=== PATIENT | female | born 1945 | race Caucasian/White ===

== ENCOUNTER → 2017-05-19 | Outpatient (CLI) | payer MEDICARE, OTHER ==
[~2017-05-19] MED LIST: ACET325 PO; Boniva150 MG PO; CALCA500CH PO; ERGO400 PO; Hydrocodone-Ap1 EA23 PO; IBANDRONATE SO150 MG PO; ONDA4ODT; ONDA4ODT MM; PRED20 PO; PROM25 PO
[2017-05-19 16:55] LABS: Alanine Aminotransfer (ALT/SGP 29 U/L (12-78); Albumin, Blood 4.2 g/dL (3.4-5.0); Albumin/Globulin Ratio 1.5 (0.8-1.8); Alk Phos 59 U/L (50-136); Anion Gap 10 mmol/L (6-16); Aspartate Aminotrans (AST/SGOT 23 U/L (12-37); Bilirubin, Total 0.6 mg/dL (0.1-1.0); Blood Urea Nitrogen 21 mg/dL (8-24); Bun/Creatinine Ratio 40.9 (12.0-20.0); CO2, Blood 24 mmol/L (21-32); Calcium, Blood 9.6 mg/dL (8.5-10.1); Chloride, Blood 105 mmol/L (98-108); Creatinine, Blood 0.51 mg/dL (0.40-1.00); Globulin, Blood 2.8 g/dL (2.2-4.0); Glomerular Filtration Rate >60 (60-); Glucose, Blood 93 mg/dL (70-99); Potassium, Blood 4.4 mmol/L (3.5-5.5); Sodium, Blood 139 mmol/L (136-145)
[2017-05-19 16:56] LABS: Lactate Dehydrogenase (Ld),Bld 211 U/L (100-240)
== END ==
LOC: LAB SHORT 10:00
PROVIDERS: Internal Medicine Hematology & Oncology
DX: C85.90 Non-Hodgkin lymphoma, unspecified, unspecified site (principal)
CPT/HCPCS: 80053; 83615

== ENCOUNTER → 2017-10-03 | Outpatient (CLI) | payer MEDICARE, OTHER ==
[2017-10-03 17:36] LABS: Alanine Aminotransfer (ALT/SGP 24 U/L (12-78); Albumin, Blood 4.1 g/dL (3.4-5.0); Albumin/Globulin Ratio 1.7 (0.8-1.8); Alk Phos 44 U/L (50-136); Anion Gap 8 mmol/L (6-16); Aspartate Aminotrans (AST/SGOT 24 U/L (12-37); Bilirubin, Total 0.5 mg/dL (0.1-1.0); Blood Urea Nitrogen 17 mg/dL (8-24); Bun/Creatinine Ratio 23.6 (12.0-20.0); CO2, Blood 28 mmol/L (21-32); Calcium, Blood 9.1 mg/dL (8.5-10.1); Chloride, Blood 109 mmol/L (98-108); Creatinine, Blood 0.72 mg/dL (0.40-1.00); Globulin, Blood 2.4 g/dL (2.2-4.0); Glomerular Filtration Rate >60 (60-); Glucose, Blood 84 mg/dL (70-99); Lactate Dehydrogenase (Ld),Bld 198 U/L (100-240); Potassium, Blood 3.9 mmol/L (3.5-5.5); Sodium, Blood 145 mmol/L (136-145); Total Protein, Blood 6.5 g/dL (6.4-8.2)
== END | disposition home or self-care (01) ==
LOC: LAB 10:36 → LAB SHORT 10:36
PROVIDERS: Internal Medicine Hematology & Oncology
DX: C85.90 Non-Hodgkin lymphoma, unspecified, unspecified site (principal)
CPT/HCPCS: 80053; 83615

== ENCOUNTER → 2018-05-18 | Outpatient (CLI) | payer MEDICARE, OTHER ==
[2018-05-18 10:57] LABS: BASOPHILS ABSOLUTE AUTO 0.05 K/mm3 (0.00-0.23); BASOPHILS PERCENT AUTO 1 % (0-2); EOSINOPHILS ABSOLUTE AUTO 0.24 K/mm3 (0.00-0.68); EOSINOPHILS PERCENT AUTO 5 % (0-6); Hematocrit 38.9 % (33.0-51.0); Hemoglobin 13.1 g/dL (11.5-16.0); IMMATURE GRAN ABSOLUTE AUTO 0.01 K/mm3 (0.00-0.10); IMMATURE GRAN PERCENT AUTO 0 % (0-1); LYMPHOCYTES ABSOLUTE AUTO 1.28 K/mm3 (0.84-5.20); LYMPHOCYTES PERCENT AUTO 27 % (21-46); MONOCYTES ABSOLUTE AUTO 0.49 K/mm3 (0.16-1.47); MONOCYTES PERCENT AUTO 10 % (4-13); Mean Corpuscular HGB 30.8 pg (26.0-34.0); Mean Corpuscular HGB Conc 33.7 g/dL (31.5-36.5); Mean Corpuscular Volume 91 fL (80-100); Mean Platelet Volume 10.8 fL (9.1-12.4); NEUTROPHILS ABSOLUTE AUTO 2.64 K/mm3 (1.96-9.15); NEUTROPHILS PERCENT AUTO 56 % (41-73); Platelet Count 225 K/mm3 (150-400); RDW Coefficient Variation 12.5 % (11.7-14.2); RDW Standard Deviation 41.7 fL (35.1-46.3); Red Blood Cell Count 4.26 M/mm3 (3.80-5.20); White Blood Cell Count 4.71 K/mm3 (4.00-11.30)
== END | disposition home or self-care (01) ==
LOC: LAB 10:37 → LAB SHORT 10:37
PROVIDERS: Internal Medicine Hematology & Oncology
DX: C85.90 Non-Hodgkin lymphoma, unspecified, unspecified site (principal); D50.9 Iron deficiency anemia, unspecified
CPT/HCPCS: 85025

== ENCOUNTER 2019-12-15 12:06 | Day surgery (SDC) | payer MEDICARE, OTHER ==
[~2019-12-15] VITALS: Ht 157.5 cm; Wt 42.2 kg
[2019-12-15] MEDS ORDERED: CALCIUM 600 +1 EA11 (12:29)
[2019-12-15] MEDS ORDERED: PROLIA60 MG/1 ML SQ (12:29)
== END 2019-12-15 14:05 | disposition home or self-care (01) ==
LOC: ORSCSDS 12:06
PROVIDERS: Anesthesiology
PROC: 3E0R33Z Introduction of Anti-inflammatory into Spinal Canal, Percutaneous Approach (ICD-10-PCS; principal; 2019-12-15 13:30)
DX: M50.122 Cervical disc disorder at C5-C6 level with radiculopathy (principal); E78.00 Pure hypercholesterolemia, unspecified
CPT/HCPCS: J1040; J2250; J3010; J7030

== ENCOUNTER 2021-05-23 08:43 | Day surgery (SDC) | payer MEDICARE, OTHER ==
[~2021-05-23] VITALS: Ht 157.5 cm; Wt 45.3 kg
[~2021-05-23 08:43] MED LIST changes: +CALCIUM 600 +1 EA11; +PROLIA60 MG/1 ML SQ
== END 2021-05-23 11:01 | disposition home or self-care (01) ==
LOC: ORSCSDS 08:43
PROVIDERS: Internal Medicine Gastroenterology
PROC: 0DBK8ZX Excision of Ascending Colon, Via Natural or Artificial Opening Endoscopic, Diagnostic (ICD-10-PCS; principal; 2021-05-23 10:00)
PROC: 0DBL8ZX Excision of Transverse Colon, Via Natural or Artificial Opening Endoscopic, Diagnostic (ICD-10-PCS; principal; 2021-05-23 10:00)
DX: Z12.11 Encounter for screening for malignant neoplasm of colon (principal); Z86.010 Personal history of colon polyps; D12.2 Benign neoplasm of ascending colon; D12.3 Benign neoplasm of transverse colon; K57.30 Diverticulosis of large intestine without perforation or abscess without bleeding; Z79.899 Other long term (current) drug therapy
CPT/HCPCS: 88305; J2704; J7120

== ENCOUNTER 2024-01-25 08:22 | Emergency (ER) | payer MEDICARE, OTHER ==
[~2024-01-25] VITALS: Ht 154.9 cm; Wt 47.6 kg
[2024-01-25 08:36] VITALS: BP 150/88
[2024-01-25] MEDS ORDERED: Ketorolac Tromethamine 15mg Vial IV ONE (09:30)
[2024-01-25 09:38] LABS: BASOPHILS ABSOLUTE AUTO 0.05 K/mm3 (0.00-0.23); BASOPHILS PERCENT AUTO 1 % (0-2); EOSINOPHILS ABSOLUTE AUTO 0.21 K/mm3 (0.00-0.68); EOSINOPHILS PERCENT AUTO 3 % (0-6); Hematocrit 42.7 % (33.0-51.0); Hemoglobin 15.1 g/dL (11.5-16.0); IMMATURE GRAN ABSOLUTE AUTO 0.01 K/mm3 (0.00-0.10); IMMATURE GRAN PERCENT AUTO 0 % (0-1); LYMPHOCYTES ABSOLUTE AUTO 2.07 K/mm3 (0.84-5.20); LYMPHOCYTES PERCENT AUTO 33 % (21-46); MONOCYTES ABSOLUTE AUTO 0.42 K/mm3 (0.16-1.47); MONOCYTES PERCENT AUTO 7 % (4-13); Mean Corpuscular HGB 30.2 pg (26.0-34.0); Mean Corpuscular HGB Conc 35.4 g/dL (31.5-36.5); Mean Corpuscular Volume 85 fL (80-100); Mean Platelet Volume 10.5 fL (9.1-12.4); NEUTROPHILS ABSOLUTE AUTO 3.53 K/mm3 (1.96-9.15); NEUTROPHILS PERCENT AUTO 56 % (41-73); Platelet Count 284 K/mm3 (150-400); RDW Coefficient Variation 13.2 % (11.7-14.2); RDW Standard Deviation 41.2 fL (35.1-46.3); White Blood Cell Count 6.29 K/mm3 (4.00-11.30)
[2024-01-25 09:50] LABS: Albumin, Blood 4.1 g/dL (3.4-5.0); Albumin/Globulin Ratio 1.2 (0.8-1.8); Bun/Creatinine Ratio 18.2 (12.0-20.0); Creatinine, Blood 0.61 mg/dL (0.40-1.00); Globulin, Blood 3.3 g/dL (2.2-4.0); Potassium, Blood 3.6 mmol/L (3.5-5.5); Total Protein, Blood 7.4 g/dL (6.4-8.2)
[2024-01-25 09:58] LABS: Source, Urine Clean Catch
[2024-01-25 10:08] LABS: Bilirubin, Urine Neg (Neg); Blood, Urine 2+ (Neg); Glucose Qualitative, Urine Neg (Neg); Ketones, Urine 2+ (Neg); Leukocyte Esterase, Urine Neg (Neg); Nitrite, Urine Neg (Neg); Protein, Urine Neg (Neg); Urobilinogen, Urine NORM (Normal)
[2024-01-25 10:29] LABS: Appearance, Urine Clear (Clear); Color, Urine Pale Yellow (P-Yellow)
[2024-01-25 10:34] LABS: White Blood Cells, Urine 0-2 /hpf (0-5)
[2024-01-25 10:35] LABS: Bacteria Rare /hpf; Hyaline Casts 0-2 /lpf (0-2); Mucus Light (0-Heavy); Squamous Epithelial Cells Not Seen /hpf (Few)
== END 2024-01-25 11:48 | disposition home or self-care (01) ==
LOC: ER 08:22
PROVIDERS: Student in an Organized Health Care Education/Training Program
DX: G57.21 Lesion of femoral nerve, right lower limb (principal); Z88.0 Allergy status to penicillin
CPT/HCPCS: 74177; 80053; 81001; 85025; 96374-59; 99284-25; J1885; Q9967

== ENCOUNTER 2024-01-30 09:48 | Emergency (ER) | payer MEDICARE, OTHER ==
[~2024-01-30] VITALS: Ht 154.9 cm; Wt 47.6 kg
[2024-01-30 11:10] LABS: Source, Urine Clean Catch
[2024-01-30 11:12] LABS: Appearance, Urine Clear (Clear); Bilirubin, Urine Neg (Neg); Blood, Urine 4+ (Neg); Color, Urine Yellow (P-Yellow); Glucose Qualitative, Urine Neg (Neg); Ketones, Urine 2+ (Neg); Leukocyte Esterase, Urine Neg (Neg); Nitrite, Urine Neg (Neg); Protein, Urine 1+ (Neg); Urobilinogen, Urine NORM (Normal)
[2024-01-30 11:12] LABS: BASOPHILS ABSOLUTE AUTO 0.06 K/mm3 (0.00-0.23); BASOPHILS PERCENT AUTO 1 % (0-2); EOSINOPHILS ABSOLUTE AUTO 0.18 K/mm3 (0.00-0.68); EOSINOPHILS PERCENT AUTO 3 % (0-6); Hematocrit 41.3 % (33.0-51.0); Hemoglobin 14.7 g/dL (11.5-16.0); IMMATURE GRAN ABSOLUTE AUTO 0.02 K/mm3 (0.00-0.10); IMMATURE GRAN PERCENT AUTO 0 % (0-1); LYMPHOCYTES ABSOLUTE AUTO 2.19 K/mm3 (0.84-5.20); LYMPHOCYTES PERCENT AUTO 32 % (21-46); MONOCYTES ABSOLUTE AUTO 0.55 K/mm3 (0.16-1.47); MONOCYTES PERCENT AUTO 8 % (4-13); Mean Corpuscular HGB 30.9 pg (26.0-34.0); Mean Corpuscular HGB Conc 35.6 g/dL (31.5-36.5); Mean Corpuscular Volume 87 fL (80-100); Mean Platelet Volume 10.7 fL (9.1-12.4); NEUTROPHILS ABSOLUTE AUTO 3.78 K/mm3 (1.96-9.15); NEUTROPHILS PERCENT AUTO 56 % (41-73); Platelet Count 238 K/mm3 (150-400); RDW Coefficient Variation 13.2 % (11.7-14.2); RDW Standard Deviation 41.3 fL (35.1-46.3); Red Blood Cell Count 4.76 M/mm3 (3.80-5.20); White Blood Cell Count 6.78 K/mm3 (4.00-11.30)
[2024-01-30 11:25] LABS: Albumin, Blood 4.1 g/dL (3.4-5.0); Albumin/Globulin Ratio 1.3 (0.8-1.8); Bilirubin, Total 0.8 mg/dL (0.1-1.0); Bun/Creatinine Ratio 19.5 (12.0-20.0); Calcium, Blood 9.4 mg/dL (8.5-10.1); Creatinine, Blood 0.57 mg/dL (0.40-1.00); Globulin, Blood 3.1 g/dL (2.2-4.0); Potassium, Blood 3.7 mmol/L (3.5-5.5); Total Protein, Blood 7.2 g/dL (6.4-8.2)
[2024-01-30 11:46] LABS: Bacteria Rare /hpf; Squamous Epithelial Cells Rare /hpf (Few); White Blood Cells, Urine 0-2 /hpf (0-5)
[2024-01-30 14:22] VITALS: BP 147/82
== END 2024-01-30 14:40 | disposition home or self-care (01) ==
LOC: ER 09:48
PROVIDERS: Physician Assistant
DX: K52.9 Noninfective gastroenteritis and colitis, unspecified (principal); Z88.0 Allergy status to penicillin
CPT/HCPCS: 74177; 80053; 81001; 85025; 99284-25; Q9967

== ENCOUNTER 2024-06-01 13:58 | Day surgery (SDC) | payer MEDICARE, OTHER ==
[~2024-06-01] VITALS: Ht 154.9 cm; Wt 46.3 kg
[~2024-06-01 13:58] MED LIST changes: +Atropine Sulfate 0.1 MG/ML 10ML SYR ONE; +Glycopyrrolate 0.2 MG/ML 1MLVIAL ONE; +Lactated Ringer's 1,000 ML IV ONE; +Lidocaine 2% 5 ML SDV ONE; +Lidocaine HCl/Pf 1% 5 ML VIAL ONE; +Ondansetron HCl 2 MG / ML 2ML Vial ONE; +ePHEDrine Sulfate 50 MG/ML 1ML Injection ONE; +propofoL 50 ML IV ONE
[2024-06-01] MEDS ORDERED: Lactated Ringer's 1,000 ML IV ONE (15:22)
[2024-06-01 17:10] VITALS: BP 126/84
== END 2024-06-01 17:11 | disposition home or self-care (01) ==
LOC: ORSCSDS 13:58
PROVIDERS: Surgery
PROC: 0DBK8ZX Excision of Ascending Colon, Via Natural or Artificial Opening Endoscopic, Diagnostic (ICD-10-PCS; principal; 2024-06-01 15:30)
DX: R10.31 Right lower quadrant pain (principal); K59.00 Constipation, unspecified; Z86.0100 Personal history of colon polyps, unspecified; D12.2 Benign neoplasm of ascending colon; E78.5 Hyperlipidemia, unspecified; Z87.898 Personal history of other specified conditions
CPT/HCPCS: J0461; J2003; J2405; J2704; J7120

== ENCOUNTER 2024-08-11 12:50 | Day surgery (SDC) | payer MEDICARE, OTHER ==
[~2024-08-11] VITALS: Ht 157.5 cm; Wt 46.9 kg
[~2024-08-11 12:50] MED LIST changes: -Atropine Sulfate 0.1 MG/ML 10ML SYR ONE; +Balanced Salt Epinephrine Irrigation Solution 500 mL IR SCH; +Diazepam 2 MG Tab PO PRN; -Glycopyrrolate 0.2 MG/ML 1MLVIAL ONE; -Lactated Ringer's 1,000 ML IV ONE; -Lidocaine 2% 5 ML SDV ONE; -Lidocaine HCl/Pf 1% 5 ML VIAL ONE; +Lidocaine HCl/Pf 1% 5 ML VIAL XX SCH; +Moxifloxacin HCL 0.5 MG/0.1 ML 0.4MLSYR RIGHTEYE SCH; +Ondansetron 4 MG SoluTab MM PRN; -Ondansetron HCl 2 MG / ML 2ML Vial ONE; +PHENYLEPHRINE\\TROPICAMIDE\\TETRACAINE OPHTHALMIC DILATING SOLN RIGHTEYE PRN; +Povidone-Iodine 450 DROP/30 ML Solution ONE; +Povidone-Iodine 450 DROP/30 ML Solution RIGHTEYE SCH; +Tetracaine HCl/Pf 0.5% Opth Soln 4 ml ONE; +diazePAM 5 MG,diazePAM 2 MG PO SCH; -ePHEDrine Sulfate 50 MG/ML 1ML Injection ONE; -propofoL 50 ML IV ONE
[2024-08-11] MEDS ORDERED: Diazepam 2 MG Tab ONE (12:51)
[2024-08-11] MEDS ORDERED: Diazepam 5 MG Tab ONE (12:52)
--- NOTE | 2024-08-11 13:42 | NUR ---
08/11/24 1342 Marni Rodriguez PT REPORTS ANXIETY LEVEL AT 2/10 PRIOR TO ADMINISTRATION OF VALIUM 7MG PO AT 1322. SPO2 AND HR MONITORING IN PLACE. CALL LIGHT IN PT'S HAND. TETRACAINE IN AT 1324. PLEDGETT IN AT 1325.
[2024-08-11] MEDS ORDERED: Tetracaine HCl 0.5% Opth Soln 15 ml RIGHTEYE ONE (14:02)
--- NOTE | 2024-08-11 14:04 | NUR ---
08/11/24 1404 Dieter Cao N 1404 141/71 20 61 100 10 L BLOW BY 02
[2024-08-11 14:27] VITALS: BP 129/76
== END 2024-08-11 14:27 | disposition home or self-care (01) ==
LOC: ORSCSDS 12:50
PROVIDERS: Student in an Organized Health Care Education/Training Program
PROC: 08RJ3JZ Replacement of Right Lens with Synthetic Substitute, Percutaneous Approach (ICD-10-PCS; principal; 2024-08-11 14:30)
DX: H25.813 Combined forms of age-related cataract, bilateral (principal); E78.5 Hyperlipidemia, unspecified
CPT/HCPCS: A9270; V2632

== ENCOUNTER 2024-08-17 12:31 | Day surgery (SDC) | payer MEDICARE, OTHER ==
[~2024-08-17] VITALS: Ht 157.5 cm; Wt 46.6 kg
[~2024-08-17 12:31] MED LIST changes: +Diazepam 5 MG Tab PO PRN; +Diazepam 5 MG Tab PO SCH; +Moxifloxacin HCL 0.5 MG/0.1 ML 0.4MLSYR LEFTEYE SCH; -Moxifloxacin HCL 0.5 MG/0.1 ML 0.4MLSYR RIGHTEYE SCH; +PHENYLEPHRINE\\TROPICAMIDE\\TETRACAINE OPHTHALMIC DILATING SOLN LEFTEYE PRN; -PHENYLEPHRINE\\TROPICAMIDE\\TETRACAINE OPHTHALMIC DILATING SOLN RIGHTEYE PRN; +Povidone-Iodine 450 DROP/30 ML Solution LEFTEYE SCH; -Povidone-Iodine 450 DROP/30 ML Solution RIGHTEYE SCH
[2024-08-17] MEDS ORDERED: Diazepam 2 MG Tab ONE (12:42)
[2024-08-17] MEDS ORDERED: Diazepam 5 MG Tab ONE (12:43)
--- NOTE | 2024-08-17 12:59 | NUR ---
08/17/24 1259 Sola Lopez PT ANXITEY LEVEL 1-05/31. PT IS IN BED WITH CALL LIGHT, PULSE OX MONITORING IN PLACE.
--- NOTE | 2024-08-17 13:30 | NUR ---
08/17/24 1330 Valery Stallings 1322 BP 131/73, HR 56, 02 AT 99% BLOW BY, 16 RESP
[2024-08-17 13:38] VITALS: BP 129/69
--- NOTE | 2024-08-17 13:52 | NUR ---
08/17/24 0486 Karissa Costa CALLED AND UPDATED HIM ON ESTIMATED DISCHARGE TIME. INSTRUCTED HIM TO PULL CAR TO PATIENT SKIN TANNER AREA
== END 2024-08-17 13:52 | disposition home or self-care (01) ==
LOC: ORSCSDS 12:31
PROVIDERS: Student in an Organized Health Care Education/Training Program
PROC: 08RK3JZ Replacement of Left Lens with Synthetic Substitute, Percutaneous Approach (ICD-10-PCS; principal; 2024-08-17 14:00)
DX: H25.812 Combined forms of age-related cataract, left eye (principal); Z96.1 Presence of intraocular lens; M81.0 Age-related osteoporosis without current pathological fracture; E78.5 Hyperlipidemia, unspecified
CPT/HCPCS: A9270; V2632

== ENCOUNTER 2025-04-03 09:59 | Inpatient (IN) | payer MEDICARE, OTHER ==
[~2025-04-03] VITALS: Ht 165.1 cm; Wt 59.0 kg
[~2025-04-03 09:59] MED LIST changes: -Balanced Salt Epinephrine Irrigation Solution 500 mL IR SCH; -Diazepam 2 MG Tab PO PRN; -Diazepam 5 MG Tab PO PRN; -Diazepam 5 MG Tab PO SCH; -Lidocaine HCl/Pf 1% 5 ML VIAL XX SCH; -Moxifloxacin HCL 0.5 MG/0.1 ML 0.4MLSYR LEFTEYE SCH; -Ondansetron 4 MG SoluTab MM PRN; -PHENYLEPHRINE\\TROPICAMIDE\\TETRACAINE OPHTHALMIC DILATING SOLN LEFTEYE PRN; -Povidone-Iodine 450 DROP/30 ML Solution LEFTEYE SCH; -Povidone-Iodine 450 DROP/30 ML Solution ONE; -Tetracaine HCl/Pf 0.5% Opth Soln 4 ml ONE; -diazePAM 5 MG,diazePAM 2 MG PO SCH
[2025-04-03 11:19] LABS: BASOPHILS ABSOLUTE AUTO 0.06 K/mm3 (0.00-0.23); BASOPHILS PERCENT AUTO 0 % (0-2); EOSINOPHILS ABSOLUTE AUTO 0.04 K/mm3 (0.00-0.68); EOSINOPHILS PERCENT AUTO 0 % (0-6); Hematocrit 36.4 % (33.0-51.0); Hemoglobin 12.7 g/dL (11.5-16.0); IMMATURE GRAN ABSOLUTE AUTO 0.10 K/mm3 (0.00-0.10); IMMATURE GRAN PERCENT AUTO 1 % (0-1); LYMPHOCYTES ABSOLUTE AUTO 0.98 K/mm3 (0.84-5.20); LYMPHOCYTES PERCENT AUTO 6 % (21-46); MONOCYTES ABSOLUTE AUTO 0.94 K/mm3 (0.16-1.47); MONOCYTES PERCENT AUTO 6 % (4-13); Mean Corpuscular HGB Conc 34.9 g/dL (31.5-36.5); Mean Corpuscular Volume 89 fL (80-100); NEUTROPHILS ABSOLUTE AUTO 14.12 K/mm3 (1.96-9.15); NEUTROPHILS PERCENT AUTO 87 % (41-73); NRBC ABSOLUTE 0.00 K/mm3 (0.00-0.02); NRBC Auto 0.0 /100 WBC (0.0-0.2); Platelet Count 190 K/mm3 (150-400); RDW Coefficient Variation 13.3 % (11.7-14.2); RDW Standard Deviation 43.9 fL (35.1-46.3)
[2025-04-03 11:30] LABS: Alanine Aminotransfer (ALT/SGP 18.0 U/L (12-78); Albumin, Blood 3.5 g/dL (3.4-5.0); Albumin/Globulin Ratio 1.2 (0.8-1.8); Anion Gap 9.0 mmol/L (3-11); Aspartate Aminotrans (AST/SGOT 26.0 U/L (12-37); Bilirubin, Total 0.5 mg/dL (0.1-1.0); Blood Urea Nitrogen 12.0 mg/dL (8-24); CO2, Blood 24.0 mmol/L (21-32); Calcium, Blood 8.4 mg/dL (8.5-10.1); Chloride, Blood 106.0 mmol/L (98-108); Creatinine, Blood 0.56 mg/dL (0.40-1.00); Globulin, Blood 3.0 g/dL (2.2-4.0); Glucose, Blood 148.0 mg/dL (70-99); Potassium, Blood 3.4 mmol/L (3.5-5.5); Sodium, Blood 136.0 mmol/L (136-145); Total Protein, Blood 6.5 g/dL (6.4-8.2)
[2025-04-03] MEDS ORDERED: Magnesium Hydroxide Conc 10 ML UDC PO PRN (11:50)
[2025-04-03] MEDS ORDERED: FLU VACC TS2025(65UP)/MF59C/PF 45 MCG/0.5 ML SYRINGE IM SCH (12:00)
[2025-04-03] MEDS ORDERED: Ondansetron HCl 2 MG / ML 2ML Vial IV ONE (12:15)
[2025-04-03 13:24] VITALS: BP 159/85
[2025-04-03] MEDS ORDERED: Ondansetron HCl 2 MG / ML 2ML Vial IV PRN (13:30)
[2025-04-03] MEDS ORDERED: Labetalol HCL 5 MG/ML 4ML Injection (Single Dose) IV PRN (13:45)
[2025-04-03] MEDS ORDERED: HYDROmorphone HCl/Pf 1MG SYR IV PRN (15:50)
[2025-04-03] MEDS ORDERED: Metoclopramide HCl 5MG / ML 2ML Vial IV PRN (15:50)
--- NOTE | 2025-04-03 16:31 | NUR ---
PT A/OX4. RIGHT SIDE DEFICITS WERE NOTED ON ASSESSMENT. RIGHT FACIAL DROOP, RIGHT SIDE NECK TILT, AND RIGHT SIDE ARM DROOP. PT DID HAVE 2 EPISODES OF EMESIS. TX PER EMAR. SOME NAUSEA STILL PRESENT PER PT. PT HAS BEEN BEDREST SINCE ADMISSION DUE TO DIZZINESS AND RIGHT SIDE WEAKNESS. MRI IS ORDERED. COVID TEST SENT TO LAB. PT IS CURRENTLY RESTING IN BED, CHEST RISE AND FALL IS SYMMETRICAL. NO ACUTE NEEDS AT THIS TIME.
[2025-04-03 18:23] LABS: Influenza A, PCR NEGATIVE (NEGATIVE); Influenza B, PCR NEGATIVE (NEGATIVE); Resp Syncytial Virus, PCR NEGATIVE (NEGATIVE); SARS-Cov-2 (COVID-19) PCR, MMC NEGATIVE (NEGATIVE)
[2025-04-03 20:42] VITALS: BP 118/70
[2025-04-04] VITALS (7 sets, daily range): BP systolic 121–138; BP diastolic 68–82
[2025-04-04 05:54] LABS: BASOPHILS ABSOLUTE AUTO 0.02 K/mm3 (0.00-0.23); BASOPHILS PERCENT AUTO 0 % (0-2); EOSINOPHILS ABSOLUTE AUTO 0.03 K/mm3 (0.00-0.68); EOSINOPHILS PERCENT AUTO 0 % (0-6); Hematocrit 37.0 % (33.0-51.0); Hemoglobin 13.1 g/dL (11.5-16.0); IMMATURE GRAN ABSOLUTE AUTO 0.03 K/mm3 (0.00-0.10); IMMATURE GRAN PERCENT AUTO 0 % (0-1); LYMPHOCYTES ABSOLUTE AUTO 1.69 K/mm3 (0.84-5.20); LYMPHOCYTES PERCENT AUTO 16 % (21-46); MONOCYTES ABSOLUTE AUTO 1.13 K/mm3 (0.16-1.47); MONOCYTES PERCENT AUTO 10 % (4-13); Mean Corpuscular HGB Conc 35.4 g/dL (31.5-36.5); Mean Corpuscular Volume 88 fL (80-100); NEUTROPHILS ABSOLUTE AUTO 7.92 K/mm3 (1.96-9.15); NEUTROPHILS PERCENT AUTO 73 % (41-73); NRBC ABSOLUTE 0.00 K/mm3 (0.00-0.02); NRBC Auto 0.0 /100 WBC (0.0-0.2); Platelet Count 216 K/mm3 (150-400); RDW Coefficient Variation 13.5 % (11.7-14.2); RDW Standard Deviation 43.3 fL (35.1-46.3)
[2025-04-04 06:13] LABS: Anion Gap 10.0 mmol/L (3-11); Blood Urea Nitrogen 12.0 mg/dL (8-24); CO2, Blood 27.0 mmol/L (21-32); Calcium, Blood 8.7 mg/dL (8.5-10.1); Chloride, Blood 104.0 mmol/L (98-108); Creatinine, Blood 0.71 mg/dL (0.40-1.00); Glucose, Blood 101.0 mg/dL (70-99); Potassium, Blood 3.7 mmol/L (3.5-5.5); Sodium, Blood 137.0 mmol/L (136-145)
--- NOTE | 2025-04-04 06:44 | NUR ---
SHIFT SUMMARY PT C/O DIZZINESS WITH ANY MOVEMENT THROUGHOUT THE NIGHT. MEDICATED FOR NAUSEA X2 PER EMAR. NO EMESIS THIS SHIFT. PT ABLE TO TAKE A COUPLE OF SIPS OF WATER, A COUPLE OF BITES OF CRACKER, AND TYLENOL FOR HEADACHE. SLEPT WITH HOB ELEVATED FOR COMFORT. SLEPT INTERMITTENTLY DURING THE NIGHT. MRI PLANNED FOR THIS AM.
[2025-04-04] MEDS ORDERED: Enoxaparin 40 MG/0.4 ML SYR SC SCH (09:00)
--- NOTE | 2025-04-04 17:05 | NUR ---
SHIFT SUMMARY PATIENT IS A&OX4, SHE IS ON ROOM AIR AND HAS TELEMETRY RUNNING SINUS RHYTHM FOR THIS DAY. RIGHT SIDED WEAKNESS REPORTED BY BREASTER HAS NOT BEEN OBSERVED BY THIS RN. PATIENT DOES REMAIN WEAK BUT CAN STAND [place] [facility] [place] AND DID HAVE A LARGE FORMED BM TODAY. SHE IS STILL COMPLAINING OF NAUSEA AND DIZZINESS WITH MOVEMENT, BUT HAS REPEATEDLY DECLINED NAUSEA MEDICATION. SHE HAS NOT EATEN MUCH TODAY, SHE IS ENCOURAGED TO EAT AND EDUCATED ABOUT THE IMPORTANCE OF EATING TO HEALING. PATIENT HAS BEEN PLEASANT AND COOPERATIVE WITH CARE. SHE USES HER CALL LIGHT APPROPRIATELY. SHE IS CURRENTLY IN THE RECLINER, RESTING. WHEELS LOCKED ON CHAIR, CALL LIGHT IN REACH.
[2025-04-05 03:44] VITALS: BP 125/73
--- NOTE | 2025-04-05 04:02 | NUR ---
END OF SHIFT SUMMARY: AxOX4. DNR. ADMITTED FOR STROKE WHICH MRI CONFIRMED. PATIENT STATED SHE PREVIOUSLY HAD N&V WITH MOVING ALONG WITH LEFT SIDED WEAKNESS AND FACIAL DROOP. PATIENT STATES HAS IMPROVED SINCE ADMIT. NO N&V REPORTED THIS SHIFT. PATIENT IS ON TELE- NSR @ 75 BPM. PATIENT IS ABLE TO MAKE NEEDS KNOWN. PATIENT CAN STAND AND PIVOT WITH 1 ASSIST TO BEDSIDE COMMODE. PATIENT TAKES MEDS WHOLE WITH FLUIDS. BED IN LOWEST POSITION. CALL LIGHT WITHIN REACH AND PATIENT HAS BEEN EDUCATED ON HOW TO USE. WILL REPORT TO ONCOMING NURSE.
[2025-04-05 07:20] VITALS: BP 117/76
[2025-04-05 11:12] VITALS: BP 118/79
[2025-04-05 16:00] VITALS: BP 115/83
--- NOTE | 2025-04-05 16:00 | NUR ---
PT A/OX4. PLEASANT AND COOPERATIVE WITH CARE. SHE HAS BEEN SINUS RHYTHM ON TELE THIS SHIFT. REMAINS A STAND PIVOT TO THE BEDSIDE COMMODE DUE TO DIZZINESS/LLE WEAKNESS. SHE HAS HAD NO C/O NAUSEA. PER PT, SHE HAS BEEN ABLE TO TOLERATE FOOD BETTER TODAY. PT IS CURRENTLY SITTING UP IN CHAIR VISITING WITH FAMILY, CALL LIGHT IS IN REACH. NO ACUTE NEEDS AT THIS TIME.
[2025-04-05 19:51] VITALS: BP 139/78
[2025-04-06 00:18] VITALS: BP 121/81
[2025-04-06 03:26] VITALS: BP 108/70
--- NOTE | 2025-04-06 06:41 | NUR ---
SHIFT SUMMARY PT A&OX3-4 AND ANSWERS QUESTIONS APPROPRIATELY. PT HAS WEAKNESS/DIZZINESS WITH TRANSFERRING, 1P ASSIST TO TRANSFER. VSS, NO COMPLAINTS OF CP/PRESSURE OR SOB. PT SPENT MOST OF SHIFT IN BED WITH EYES CLOSED AND RESPIRATIONS EVEN AND UNLABORED. SCHEDULED MEDICATIONS GIVEN. NO ACUTE EVENTS DURING SHIFT. PT LEFT IN A POSITION OF SAFETY WITH FALL PRECAUTIONS IN PLACE AND CALL LIGHT IN REACH.
[2025-04-06 11:58] VITALS: BP 104/76
[2025-04-06] MEDS ORDERED: Acetaminophen325 M1 PO (14:58)
[2025-04-06] MEDS ORDERED: ASPI81CH PO (15:05)
[2025-04-06] MEDS ORDERED: ATOR80 PO (15:05)
[2025-04-06] MEDS ORDERED: CLOP75 PO (15:06)
--- NOTE | 2025-04-06 16:30 | NUR ---
DISCHARGE SUMMARY: A&Ox4. PLEASANT AND COOPERATIVE WITH CARE. CALLS APPROPRIATELY AND IS ABLE TO ADVOCATE NEEDS EFFECTIVELY. AMBUTATES c SBA/1PA c FWW FOR VERBAL CUES. CONTINENT OF BOWEL AND BLADDER; LBM 04/04 AND REFUSED ALL BOWEL CARE MEDICATIONS, ATTRIBUTING POOR OUTPUT TO POOR INTAKE. MEDS WHOLE c FLUIDS; NO DYSPHAGIA. TELE STRIP REVIEWED AND INTERPRETED NSR @ 75bpm. NO C/O PAIN OR DISCOMFORT. MAINTAINING SPO2 >92% c RA. DISCHARGE PACKET FAXED TO [facility] AND PAPER PACKET SENT c PATIENT BY ORTHOTIC/PROSTHETIC PRACTITIONER, GALO. ALL QUESTIONS ANSWERED TO DISCHARGING NURSE'S ABILITY AND PATIENT VOICED UNDERSTANDING OF DISCHARGE PLAN. IV REMOVED AND PRESSURE DRESSING PLACED. LEFT FLOOR WITH ALL BELONGINGS AND DISCHARGE PACKET, ESCORTED BY FRANCISCO HENSLEY. TRANSPORTATION PROVIDED BY VIA POV WITH [facility] OF [facility]. REPORT CALLED TO REBECCA CURRAN.
== END 2025-04-06 16:07 | DRG 66 ==
LOC: ER 09:59 → MEDS 10:00
PROVIDERS: Student in an Organized Health Care Education/Training Program; ADMIT Student in an Organized Health Care Education/Training Program
DX: I63.89 Other cerebral infarction (principal); I10 Essential (primary) hypertension; D72.829 Elevated white blood cell count, unspecified; I34.0 Nonrheumatic mitral (valve) insufficiency; M81.0 Age-related osteoporosis without current pathological fracture; R29.702 NIHSS score 2; R27.0 Ataxia, unspecified; Z66 Do not resuscitate; Z88.0 Allergy status to penicillin; Z85.72 Personal history of non-Hodgkin lymphomas; Z92.21 Personal history of antineoplastic chemotherapy
CPT/HCPCS: 36415; 70450; 70496; 70498; 70551; 80048; 80053; 85025; 87637; 93306; 96372; 96374-59; 96375; 96376; 97110; 97112; 97116; 97162; 97165; 97530; 97535; 99285-25; A9270; G0378; J1650; J2405; J2765; Q9967